=== PATIENT | female | born 1985 | race Caucasian/White ===

== ENCOUNTER 2016-04-30 14:52 | Inpatient (IN) | payer OTHER ==
[~2016-04-30] VITALS: Ht 172.7 cm; Wt 104.0 kg
[~2016-04-30 14:52] MED LIST: PV W1TAB7; [UNRECOGNIZED DRUG - CODE]
[2016-04-30 15:18] VITALS: Ht 172.7 cm; Wt 104.0 kg
[2016-04-30 15:19] VITALS: BP 127/79
[2016-04-30] MEDS ORDERED: MISOPROSTOL 200 MCG TAB PR PRN (15:30)
[2016-04-30] MEDS ORDERED: LACTATED RINGER'S 1,000 ML IV PRN (15:30)
[2016-04-30] MEDS ORDERED: METHYLERGONOVINE 0.2 MG INJ IM PRN (15:30)
[2016-04-30] MEDS ORDERED: LIDOCAINE 1% (MPF) 30 ML INJ INJ PRN (15:30)
[2016-04-30] MEDS ORDERED: CARBOPROST 250 MCG INJ IM PRN (15:30)
[2016-04-30] MEDS ORDERED: OXYTOCIN 30 UNITS/LR 500 ML IV PRN (15:30)
[2016-04-30 15:47] LABS: BASOPHILS % 0.3 % (0.0-2.0); EOSINOPHILS # 0.1 10^3/ul (0.0-0.5); EOSINOPHILS % 0.9 % (0.0-7.0); HEMATOCRIT 38.4 % (37.0-47.0); HEMOGLOBIN 12.9 g/dl (12.0-16.0); LYMPHOCYTES # 1.7 10^3/ul (0.8-2.9); MEAN CORPUSCULAR HEMOGLOBIN 27.7 pg (29.0-33.0); MEAN CORPUSCULAR HGB CONC 33.5 g/dl (32.0-37.0); MEAN CORPUSCULAR VOLUME 82.7 fl (82.0-101.0); MEAN PLATELET VOLUME 9.4 fl (7.4-10.4); MONOCYTE # 0.5 10^3/ul (0.3-0.9); MONOCYTES % 5.9 % (0.0-11.0); NEUTROPHIL # 6.2 10^3/ul (1.6-7.5); NEUTROPHILS % 72.9 % (39.0-77.0); PLATELET COUNT 247 10^3/UL (140-440); RED BLOOD COUNT 4.64 10^6/ul (4.20-5.40); RED CELL DISTRIBUTION WIDTH 17.5 % (11.5-14.5); UNCORRECTED WBC 8.6 10^3/ul (4.8-10.8); WHITE BLOOD COUNT 8.6 10^3/ul (4.8-10.8)
[2016-04-30] MEDS: BETAMET NA PHOS/AC(6 MG/ML) 5ML INJ IM SCH (15:54)
[2016-04-30 15:56] LABS: ALBUMIN 3.5 g/dl (3.3-4.9)
[2016-04-30 15:57] LABS: POTASSIUM 4.5 mmol/L (3.5-5.1)
[2016-04-30 15:58] LABS: INR 0.94; PARTIAL THROMBOPLASTIN TIME 26.8 Sec (25.0-35.0); PROTIME 12.6 Sec (12.2-14.2)
[2016-04-30 15:59] LABS: ALBUMIN/GLOBULIN RATIO 0.94; BILIRUBIN,INDIRECT 0.3 mg/dl (0-1.1); BILIRUBIN,TOTAL 0.3 mg/dl (0.2-1.3); CREATININE 0.46 mg/dl (0.44-1.00); TOTAL PROTEIN 7.2 g/dl (6.1-8.1)
[2016-04-30 16:00] LABS: CALCIUM 9.3 mg/dl (8.4-10.2); CONDITION 1; LH ANALYZER COMMENTS 1; URIC ACID 4.7 mg/dl (3.1-7.9)
[2016-04-30] MEDS: LACTATED RINGER'S 1,000 ML IV SCH (16:03)
[2016-04-30 16:04] LABS: ADD UMIC YES; URINE BILIRUBIN (Dip) NEGATIVE (NEGATIVE); URINE BLOOD (Dip) NEGATIVE (NEGATIVE); URINE COLOR LT. YELLOW (YELLOW); URINE GLUCOSE (Dip) NEGATIVE (NEGATIVE); URINE KETONES (Dip) NEGATIVE (NEGATIVE); URINE LEUKOCYTE ESTERASE (Dip) TRACE (NEGATIVE); URINE NITRITE (Dip) NEGATIVE (NEGATIVE); URINE TOTAL PROTEIN (Dip) NEGATIVE (NEGATIVE); URINE UROBILINOGEN (Dip) 0.2 E.U./dL (0.1-1.0)
[2016-04-30 16:15] LABS: SQUAMOUS EPITHELIAL CELL,UR MODERATE; URINE RBCS NONE SEEN /HPF (0)
[2016-04-30] MEDS: URSODIOL 300 MG CAP PO SCH (20:46)
[2016-05-01] MEDS: LACTATED RINGER'S 1,000 ML IV SCH ×3 (00:03→16:17)
--- NOTE | 2016-05-01 00:30 | PN ---
Date/Time of Note Date/Time of Note DATE: 05/01/16 TIME: 00:27 OB Subjective Subjective Subjective Patient admitted yesterday with twin gestation due to elevated blood pressure,, rule out PIH by primary OB. Patient denies any headache, blurred vision or epigastric pain. She denies any vaginal bleeding, uterine contractions or decreased movement. OB Objective Objective Objective General appearance: Alert and oriented not in acute distress. Abdomen: Soft, gravid, fundal height consistent with gestational age NST: Category 1 for both fetuses, no contractions seen on the monitor Extremities: No calf tenderness no click no edema Hematology - 72 Hrs Test 04/30/16 15:23 Basophils # 0.010^3/ul (0.0-0.1) Basophils % 0.3% (0.0-2.0) Blood Morphology Comment Eosinophils # 0.110^3/ul (0.0-0.5) Eosinophils % 0.9% (0.0-7.0) Hematocrit 38.4% (37.0-47.0) Hemoglobin 12.9g/dl (12.0-16.0) Lymphocytes # 1.710^3/ul (0.8-2.9) Lymphocytes % 20.0% (15.0-51.0) Mean Corpuscular Hemoglobin 27.7pg (29.0-33.0) L Mean Corpuscular Hemoglobin Concent 33.5g/dl (32.0-37.0) Mean Corpuscular Volume 82.7fl (82.0-101.0) Mean Platelet Volume 9.4fl (7.4-10.4) Monocytes # 0.510^3/ul (0.3-0.9) Monocytes % 5.9% (0.0-11.0) Neutrophils # 6.210^3/ul (1.6-7.5) Neutrophils % 72.9% (39.0-77.0) Nucleated Red Blood Cells # 0.010^3/ul (0.0-0.0) Nucleated Red Blood Cells % 0.0/100WBC (0.0-0.0) Platelet Count 30510^3/UL (140-440) Red Blood Count 4.6410^6/ul (4.20-5.40) Red Cell Distribution Width 17.5% (11.5-14.5) H White Blood Count 8.610^3/ul (4.8-10.8) Chemistry Test 04/30/16 15:23 Alanine Aminotransferase (ALT/SGPT) 36IU/L (13-69) Albumin 3.5g/dl (3.3-4.9) Albumin/Globulin Ratio 0.94 Alkaline Phosphatase 230IU/L (42-121) H Anion Gap 19 (8-16) H Aspartate Amino Transf (AST/SGOT) 37IU/L (15-46) Blood Urea Nitrogen 8mg/dl (7-20) Calcium Level 9.3mg/dl (8.4-10.2) Carbon Dioxide Level 20mmol/L (21-31) L Chloride Level 104mmol/L (97-110) Creatinine 0.46mg/dl (0.44-1.00) Direct Bilirubin 0.00mg/dl (0.00-0.20) Globulin 3.70g/dl (1.3-3.2) H Glucose Level 86mg/dl (70-220) Indirect Bilirubin 0.3mg/dl (0-1.1) Potassium Level 4.5mmol/L (3.5-5.1) Sodium Level 138mmol/L (135-144) Total Bilirubin 0.3mg/dl (0.2-1.3) Total Protein 7.2g/dl (6.1-8.1) Uric Acid 4.7mg/dl (3.1-7.9) OB Assessment/Plan Other Assessment: Hospital day #2 Admitted for rule out PIH. Currently undergoing 24 hour urine protein collection. Status post 1 dose of steroids. Blood pressures reviewed. Mostly in normal range occasional 140s over 80s. Patient currently asymptomatic. PIH labs are normal. Received 1 dose of steroids for lung maturity. We will continue expectant management with blood pressure monitoring Follow up with 24-hour urine protein Currently stable, asymptomatic SHIRA LAURA MD May 01, 2016 00:30
[2016-05-01] MEDS: URSODIOL 300 MG CAP PO SCH ×3 (09:01→21:17)
[2016-05-01 15:49] LABS: COLLECTION PERIOD 24 hrs
[2016-05-01] MEDS: BETAMET NA PHOS/AC(6 MG/ML) 5ML INJ IM SCH (16:17)
[2016-05-01] MEDS ORDERED: LORATADINE 10 MG TAB PO ONE (17:00)
--- NOTE | 2016-05-01 17:34 | HP ---
Date/Time of Note Date/Time of Note DATE: 05/01/16 TIME: 16:49 OB - History Hx of Present Free Text/Dictation 30 years old white female with twins admitted to [facility] to rule out -induced hypertension., And cholestasis of This patient has been under the care of the [facility] medical group from December 21, 2015 during the course of her till April 30 her her blood pressure was within normal till yesterday's visit to the office her blood pressure was 142/89. The only other abnormal finding was abnormal 3 hours GTT with elevated blood glucose to(210 ) on the second hour, the rest of the values of GTT were normal Past history Menarche at age 13 history of 2 previous pregnancies one normal vaginal delivery on February 09,one section on a 10 pound baby on December 2010 Allergies, denies allergy to any known medication Social habit, denies smoking or drinking, Family history Both grandparents have diabetes and hypertension Review of systems considering twins at 33 weeks within normal Physical examination 5 feet 8, 229 pound, Temperature 98 pulse 104, respirations 6, blood pressure in the hospital 123/80 Head ears nose and throat negative, Neck supple no thyromegaly Lungs clear to P/A Heart , normal sinusal rhythm Abdomen, fundal height 41 cm from symphysis pubis to the height of the fundus, category 1 heart rate of both baby Pelvic examination, deferred Extremity, no edema no varicosities Impression intrauterine twins at 33 weeks of gestation, rule out cholestasis of rule out -induced hypertension. Estimated Due Date: Jun 19, 2016 : 3 Para: 2 Spontaneous : 0 Therapeutic : 0 Care: Good Care Ultrasounds: Normal mid trimester US Obstetrical Complications: Gestational Diabetes, Pre-eclampsia, Gestational Hypertension Medical Complications: None Past Family/Social History * Past Medical, Surgical, Family and Obstetric Histories reviewed from chart. Rubella: immune RPR/VDRL: Negative GBS Status: Unknown OB Admission Exam Vital Signs Vital Signs Vital Signs Date Time Temp Pulse Resp B/P Pulse Ox O2 Delivery O2 Flow Rate FiO2 04/30/16 15:19 98.0 127/79 Room Air Physical Exam HEENT: WNL Heart: Rhythm Normal Lungs: Clear, Equal Abdomen: WNL Extremities: Normal Reflexes: Normal Cervical Dilatation: None Effacement: 0% Station: Ballotable Heart Rate: 140's Accelerations: Accelerations Present Decelerations: No Decelerations Varibility: Moderate Contractions on Admission: None Last 72 hours Lab Results CBC & BMP 04/30/16 15:23 Liver Function Test 04/30/16 15:23 Alanine Aminotransferase (ALT/SGPT) 36 Albumin 3.5 Alkaline Phosphatase 230 H Aspartate Amino Transf (AST/SGOT) 37 Direct Bilirubin 0.00 Total Protein 7.2 OB Assessment/Plan Reason for admission: IUP - Other plan: Perinatology consult PAULA TRIMBLE MD May 01, 2016 17:07
[2016-05-01 17:42] LABS: COLLECTION PERIOD 24 hrs
[2016-05-01 17:46] LABS: SCRET 0.46 mg/dl (0.44-1.00)
[2016-05-01] MEDS: GUAIFENESIN/DM 5ML CUP PO PRN (18:04)
--- NOTE | 2016-05-01 20:43 | RADRPT ---
PROCEDURE: OB ultrasound for biophysical profile CLINICAL INDICATION: labor. TECHNIQUE: Multiple sonographic images of the gravid uterus performed. The images were reviewed on a PACS workstation. COMPARISON: 04/09/2016 FINDINGS: A twin live intrauterine is identified. Fetus 1 There is a heart rate of 139 bpm. Fetus is in a cephalic presentation. Placenta is located anterior. Biophysical profile: breathing movement = 2/2 tone = 2/2 motion = 2/2 GLENROY = 2/2 Amniotic fluid MVP = 2.9 cm. Fetus 2 There is a heart rate of 144 bpm. Fetus is in a breech presentation. Placenta is located an terior. Biophysical profile: breathing movement = 2/2 tone = 2/2 motion = 2/2 GLENROY = 2/2 Amniotic fluid MVP = 4.2 cm. IMPRESSION: 1. Twin live intrauterine gestation. 2. Twin 1 Biophysical profile = 8/8. 3. Twin 2 Biophysical profile = 8/8. RPTAT: HMVK .Juan David Carrasco MD, MD Date Time Electronically viewed and signed by .Juan David Carrasco MD, MD on 05/01/2016 20:43 .K/
[2016-05-02] MEDS: LACTATED RINGER'S 1,000 ML IV SCH ×3 (00:27→14:57)
[2016-05-02] MEDS: GUAIFENESIN/DM 5ML CUP PO PRN ×3 (00:52→12:50)
[2016-05-02] MEDS: URSODIOL 300 MG CAP PO SCH ×2 (09:13→12:50)
[2016-05-05 14:36] LABS: CHENODEOXYCHOLIC ACID 9.2 umol/L (< OR = 3.1); CHOLIC ACID 8.7 umol/L (< OR = 1.8); DEOXYCHOLIC ACID 1.6 umol/L (< OR = 2.4); TOTAL BILE ACIDS 19.5 umol/L (< OR = 6.8)
== END 2016-05-02 18:10 | disposition home or self-care (01) | DRG 781 ==
LOC: L-D 14:53 → OBG 21:15
PROVIDERS: ADMIT Obstetrics & Gynecology; ATTEND Obstetrics & Gynecology
PROC: 4A1HX4Z Monitoring of Products of Conception, Cardiac Electrical Activity, External Approach (ICD-10-PCS; principal; 2016-05-01)
DX: O26.893 Other specified pregnancy related conditions, third trimester (principal); O99.810 Abnormal glucose complicating pregnancy; O30.003 Twin pregnancy, unspecified number of placenta and unspecified number of amniotic sacs, third trimester; R03.0 Elevated blood-pressure reading, without diagnosis of hypertension; Z3A.33 33 weeks gestation of pregnancy; O09.293 Supervision of pregnancy with other poor reproductive or obstetric history, third trimester
CPT/HCPCS: 76818; 80053; 81001; 81003; 82575; 82962; 83789; 84156; 84560; 85025; 85610; 85730; 86592; 86900; 86901; 87340; J0702; J7120

== ENCOUNTER 2016-06-02 13:00 | Inpatient (IN) | payer OTHER ==
[~2016-06-02] VITALS: Ht 172.7 cm; Wt 108.5 kg
[2016-06-02] VITALS (7 sets, daily range): BP systolic 119–133; BP diastolic 67–80; PULSE 63–93; RESP 17–18; Ht 172.7 cm; Wt 108.5 kg
[2016-06-02 14:25] LABS: ADD SCAN DIFF NO
[2016-06-02 14:27] LABS: BASOPHILS % 0.3 % (0.0-2.0); EOSINOPHILS # 0.1 10^3/ul (0.0-0.5); EOSINOPHILS % 0.6 % (0.0-7.0); HEMATOCRIT 39.2 % (37.0-47.0); HEMOGLOBIN 12.7 g/dl (12.0-16.0); LYMPHOCYTES # 1.5 10^3/ul (0.8-2.9); LYMPHOCYTES % 19.8 % (15.0-51.0); MEAN CORPUSCULAR HEMOGLOBIN 28.2 pg (29.0-33.0); MEAN CORPUSCULAR HGB CONC 32.4 g/dl (32.0-37.0); MEAN CORPUSCULAR VOLUME 86.9 fl (82.0-101.0); MEAN PLATELET VOLUME 11.7 fl (7.4-10.4); MONOCYTE # 0.5 10^3/ul (0.3-0.9); MONOCYTES % 5.8 % (0.0-11.0); NEUTROPHIL # 5.7 10^3/ul (1.6-7.5); NEUTROPHILS % 72.7 % (39.0-77.0); PLATELET COUNT 177 10^3/UL (140-415); RED BLOOD COUNT 4.51 10^6/ul (4.20-5.40); RED CELL DISTRIBUTION WIDTH 17.2 % (11.5-14.5); WHITE BLOOD COUNT 7.8 10^3/ul (4.8-10.8)
[2016-06-02] MEDS ORDERED: OXYTOCIN 30 UNITS/LR 500 ML IV SCH (14:30)
[2016-06-02] MEDS ORDERED: METHYLERGONOVINE 0.2 MG INJ IM PRN (14:30)
[2016-06-02] MEDS ORDERED: CARBOPROST 250 MCG INJ IM PRN (14:30)
[2016-06-02] MEDS ORDERED: OXYTOCIN 30 UNITS/LR 500 ML IV PRN (14:30)
[2016-06-02] MEDS ORDERED: CEFAZOLIN 2 GM/50 ML (PMX) 50 ML IV SCH (14:30)
[2016-06-02] MEDS ORDERED: MISOPROSTOL 200 MCG TAB PR PRN (14:30)
[2016-06-02 14:37] LABS: INR 0.88; PROTIME 11.9 Sec (12.2-14.2); PT RATIO 0.9
[2016-06-02 14:38] LABS: PARTIAL THROMBOPLASTIN TIME 23.2 Sec (25.0-35.0)
[2016-06-02] MEDS: LACTATED RINGER'S 1,000 ML IV SCH ×3 (16:04→22:26)
[2016-06-02] MEDS ORDERED: METOCLOPRAMIDE 10 MG INJ ONE (16:39)
[2016-06-02] MEDS ORDERED: CITRIC ACID/NA CITRATE 30 ML CUP ONE (16:39)
[2016-06-02] MEDS ORDERED: LACTATED RINGER'S 1,000 ML IV ONE (16:40)
[2016-06-02] MEDS ORDERED: FAMOTIDINE 20 MG INJ ONE (16:44)
[2016-06-02] MEDS ORDERED: morphine SULFATE/PF (10 MG/10 ML) INJ ONE (16:58)
[2016-06-02] MEDS ORDERED: FENTAnyl 50 MCG/ML VIAL ONE (16:58)
[2016-06-02] MEDS ORDERED: FAMOTIDINE 20 MG INJ IV ONE (17:00)
[2016-06-02] MEDS ORDERED: METOCLOPRAMIDE 10 MG INJ IV ONE (17:00)
[2016-06-02] MEDS ORDERED: CITRIC ACID/NA CITRATE 30 ML CUP PO ONE (17:00)
--- NOTE | 2016-06-02 17:04 | HP ---
Date/Time of Note Date/Time of Note DATE: 06/02/16 TIME: 16:57 OB - History Hx of Present Free Text/Dictation 30 years old with twins, EDC June 19 admitted to [facility] in active labor being prepared to undergo primary , This patient has been under the care of the [facility]IST[facility] medical group and her was not complicated with gestational diabetes -induced hypertension or any other complications Her FACILITIES ASSISTANT history menarche at age 13 history of total of 3 including the present 2 normal vaginal delivery no other hospitalization for any other medical or surgical condition Estimated Due Date: Jun 19, 2016 : 3 Para: 2 Care: Good Care Ultrasounds: Normal mid trimester US Obstetrical Complications: None Medical Complications: None Past Family/Social History * Past Medical, Surgical, Family and Obstetric Histories reviewed from chart. Rubella: immune RPR/VDRL: Negative GBS Status: Negative HBsAG: Negative OB Admission Exam Vital Signs Vital Signs Vital Signs Date Time Temp Pulse Resp B/P Pulse Ox O2 Delivery O2 Flow Rate FiO2 06/02/16 13:28 98.0 93 18 119/80 100 Physical Exam HEENT: WNL Heart: Rhythm Normal Lungs: Clear, Equal Abdomen: WNL Extremities: Normal Reflexes: Normal Cervical Dilatation: 2cm Effacement: 50% Station: -2 Membranes: Intact Heart Rate: 130's Accelerations: Accelerations Present Decelerations: No Decelerations Varibility: Moderate Contractions on Admission: 6-10 Minutes Apart Intensity: Moderate Last 72 hours Lab Results CBC & BMP 06/02/16 14:15 PAULA TRIMBLE MD Jun 02, 2016 17:04
[2016-06-02] MEDS ORDERED: PHENYLephrine (100 MCG/ML) 5ML SYG ONE (17:11)
[2016-06-02] MEDS ORDERED: NALOXONE (0.4 MG/ML) INJ IV PRN (17:30)
[2016-06-02] MEDS ORDERED: ZOLPIDEM 5 MG TAB PO PRN (17:30)
[2016-06-02] MEDS ORDERED: FENTAnyl 50 MCG/ML VIAL IV PRN ×3 (17:30)
[2016-06-02] MEDS ORDERED: DIPHENHYDRAMINE 50 MG INJ IV PRN ×2 (17:30)
[2016-06-02] MEDS ORDERED: HYDROmorphONE (0.2 MG/ML) 10ML SYG IV PRN ×3 (17:30)
[2016-06-02] MEDS ORDERED: MEPERIDINE 25 MG INJ IV PRN (17:30)
[2016-06-02] MEDS ORDERED: HYDROmorphONE 1 MG/ML SYG IV PRN ×2 (17:30)
[2016-06-02] MEDS ORDERED: PROCHLORPERAZINE 10 MG INJ IV PRN ×2 (17:30)
[2016-06-02] MEDS ORDERED: ONDANSETRON 4 MG INJ IV PRN ×2 (17:30)
[2016-06-02] MEDS ORDERED: KETOROLAC 30 MG INJ IV PRN (17:30)
[2016-06-02] MEDS ORDERED: EPHEDrine SULFATE 50 MG/5 ML SYG ONE (17:41)
[2016-06-02] MEDS ORDERED: ONDANSETRON 4 MG INJ ONE (17:54)
--- NOTE | 2016-06-02 18:35 | OPR ---
DATE OF OPERATION: 06/02/2016 PREOPERATIVE DIAGNOSES: 1. Intrauterine twin at 37 weeks and 4 days, in active labor. 2. History of previous section. POSTOPERATIVE DIAGNOSES: 1. Intrauterine twin at 37 weeks and 4 days, in active labor. 2. History of previous section. PROCEDURE: Repeat transverse low cervical section. SURGEON: Paula Mccabe MD AGRICULTURAL TECHNICAL OFFICER: Kirill Miller MD ANESTHESIA: Spinal. ANESTHESIOLOGIST: Dr. Leigh FINDINGS: Live 2 babies. Baby A, male, weighed at 3120 grams, Apgars 9 and 9. Baby B, girl, weigh ed at 2810 grams, Apgars 9 and 9. DETAILS OF THE PROCEDURE: Under satisfactory spinal anesthesia, the patient prepped and draped and placed in supine position tilted to the left. Pfannenstiel incision was made. Old scar was removed . Incision carried through the subcutaneous tissue. Bleeders brought under control with electrocau emilia. Fascia incised to the length of incision. Rectus muscle divided in midline. Peritoneum expo sed, entered through a transverse incision. Exploration of abdomen. Gravid uterus at term, normal- appearing tubes and ovaries and extremely thinned out lower segment of the uterus to the thickness o f 1 mm. Bladder flap was developed. Transverse incision was made in the lower segment of the uteru s. Amniotic sac ruptured. Clear amniotic fluid noted. Live baby boy was delivered from unengaged vertex. Nasal oropharyngeal suction was performed. His cord was clamped after stopped pulsation an d baby handed to the team for immediate attention. Second bag of water of baby B was ruptu red. Baby girl was delivered from footling breech which body delivered up to the shoulder, then jennifer ulders delivered without any difficulty, posterior shoulder first and then anterior shoulder. Head delivered with Mauriceau maneuver. Nasal oropharyngeal suction was performed. Cord clamped after s topped pulsation and baby handed to the team for immediate attention. The patient received 20 units of Pitocin. Placenta delivered manually intact, and both placentas were submitted for pat hology. Uterine cavity cleaned with wet sponge and drainage established. Uterus closed in 2 layers using Monocryl #1 in continuous fashion. Peritoneal cavity irrigated with warm saline. Sponge, ne edle, instrument reported to be correct. Abdominal peritoneum closed with 2-0 chromic catgut contin uously. Rectus muscle approximated with few interrupted 2-0 chromic catgut. Fascia closed with #1 PDS in a continuous fashion. Subcutaneous tissue approximated with 2-0 chromic catgut. Skin closed with eugenia. Estimated blood loss 700 to 800 mL. Urine bag contained 200 mL of clear urine. The patient tolerated procedure well, transferred to recovery room in good condition. Dictated By: PAULA RICE/CRISTIAN Conf#: [id number] DID#: [id number]
[2016-06-02] MEDS: KETOROLAC 30 MG INJ IV PRN (20:59)
[2016-06-03] MEDS: LACTATED RINGER'S 1,000 ML IV SCH ×2 (06:10→10:44)
[2016-06-03 08:15] VITALS: BP 110/67; PULSE 83; RESP 18
[2016-06-03] MEDS: KETOROLAC 30 MG INJ IV PRN (10:40)
[2016-06-03 12:00] VITALS: BP 104/56; PULSE 75; RESP 18
[2016-06-03 16:15] VITALS: BP 110/57; PULSE 76; RESP 18
[2016-06-03] MEDS ORDERED: KETOROLAC 30 MG INJ IV PRN (17:30)
--- NOTE | 2016-06-03 17:39 | PN ---
Date/Time of Note Date/Time of Note DATE: 06/03/16 TIME: 17:38 OB Subjective Subjective Subjective Post day 1 Afebrile vital signs stable, abdomen soft bowel sounds. Lochia moderate extremity normal ambulation recommended Current Medications Medications (Trade) Dose Ordered Sig/Migel Route PRN Reason Start Time Stop Time Status Last Admin Dose Admin Lactated Ringer's 1,000 ml @ 125 mls/hr Q8H IV 06/02/16 14:08 06/03/16 10:44 Cefazolin Sodium/ Dextrose 50 ml @ 100 mls/hr ONCE IV 06/02/16 14:30 06/02/16 19:45 DC Oxytocin/Lactated Ringer's 500 ml @ 125 mls/hr ONCE IV 06/02/16 14:30 06/02/16 19:45 DC Oxytocin/Lactated Ringer's 500 ml @ 0 mls/hr ONCE PRN IV For Hemorrhage Management 06/02/16 14:30 06/02/16 19:45 DC Methylergonovine Maleate (Methergine) 0.2 mg ONCE PRN IM VAGINAL BLEEDING 06/02/16 14:30 06/02/16 19:45 DC Carboprost Tromethamine (Hemabate) 250 mcg ONCE PRN IM VAGINAL BLEEDING 06/02/16 14:30 06/02/16 19:45 DC Misoprostol (Cytotec) 1,000 mcg ONCE PRN LA VAGINAL BLEEDING 06/02/16 14:30 06/02/16 19:45 DC Metoclopramide HCl (Reglan) 10 mg STK-MED ONCE .ROUTE 06/02/16 16:39 06/02/16 16:40 DC Citric Acid/ Sodium Citrate 30 ml 30 ml STK-MED ONCE .ROUTE 06/02/16 16:39 06/02/16 16:40 DC Lactated Ringer's (Lr) 1,000 ml @ 1,000 mls/hr Q1H ONCE IV 06/02/16 16:40 06/02/16 17:39 DC 06/02/16 22:24 Citric Acid/ Sodium Citrate (Bicitra) 30 ml pre-procedure ONCE PO 06/02/16 17:00 06/02/16 17:01 DC 06/02/16 16:46 Famotidine (Pepcid Iv) 20 mg pre-procedure ONCE IV 06/02/16 17:00 06/02/16 17:01 DC 06/02/16 16:46 Metoclopramide HCl (Reglan) 10 mg ONCE ONCE IV 06/02/16 17:00 06/02/16 17:01 DC 06/02/16 16:46 Famotidine (Pepcid Iv) 20 mg STK-MED ONCE .ROUTE 06/02/16 16:44 06/02/16 16:45 DC Fentanyl (Sublimaze) 100 mcg STK-MED ONCE .ROUTE 06/02/16 16:58 06/02/16 16:59 DC Morphine Sulfate (Duramorph) 10 mg STK-MED ONCE .ROUTE 06/02/16 16:58 06/02/16 16:59 DC Phenylephrine HCl (Juvencio-Synephrine Inj Syg) 500 mcg STK-MED ONCE .ROUTE 06/02/16 17:11 06/02/16 17:12 DC Hydromorphone HCl (Dilaudid (Rec)) 0.2 mg PACU ORDER PRN IV MILD PAIN LEVEL 1-3 06/02/16 17:30 06/02/16 19:45 DC Hydromorphone HCl (Dilaudid (Rec)) 0.4 mg PACU ORDER PRN IV MODERATE PAIN LEVEL 4-6 06/02/16 17:30 06/02/16 19:45 DC Hydromorphone HCl (Dilaudid (Rec)) 0.6 mg PACU ORDER PRN IV SEVERE PAIN LEVEL 7-10 06/02/16 17:30 06/02/16 19:45 DC Fentanyl (Sublimaze) 25 mcg PACU ORDER PRN IV MILD PAIN LEVEL 1-3 06/02/16 17:30 06/02/16 19:45 DC Fentanyl (Sublimaze) 50 mcg PACU ODER PRN IV MODERATE PAIN LEVEL 4-6 06/02/16 17:30 06/02/16 19:45 DC Fentanyl (Sublimaze) 75 mcg PACU ORDER PRN IV SEVERE PAIN LEVEL 7-10 06/02/16 17:30 06/02/16 19:45 DC Ketorolac Tromethamine (Toradol) 30 mg PACU ORDER PRN IV PAIN 06/02/16 17:30 06/02/16 19:45 DC Ondansetron HCl (Zofran Inj) 4 mg PACU ORDER PRN IV NAUSEA AND/OR VOMITING 06/02/16 17:30 06/02/16 19:45 DC Prochlorperazine (Compazine Inj) 5 mg PACU ORDER PRN IV NAUSEA AND/OR VOMITING 06/02/16 17:30 06/02/16 23:00 DC Meperidine HCl (Demerol) 25 mg PACU ORDER PRN IV POST-OP RIGORS 06/02/16 17:30 06/02/16 19:45 DC Diphenhydramine HCl (Benadryl) 25 mg PACU ORDER PRN IV PRURITUS 06/02/16 17:30 06/02/16 19:45 DC Naloxone HCl (Narcan) 0.1 mg Q2M PRN IV FOR RESP RATE 8 OR LESS 06/02/16 17:30 06/03/16 17:10 DC Ketorolac Tromethamine (Toradol) 30 mg Q6H PRN IV PAIN 06/02/16 17:30 06/03/16 17:10 DC 06/03/16 10:40 Hydromorphone HCl (Dilaudid) 0.2 mg Q3H PRN IV PAIN LEVEL 1-5 06/02/16 17:30 06/03/16 17:10 DC Hydromorphone HCl (Dilaudid) 0.4 mg Q3H PRN IV PAIN LEVEL 6-10 06/02/16 17:30 06/03/16 17:10 DC Diphenhydramine HCl (Benadryl) 25 mg Q6H PRN IV ITCHING 06/02/16 17:30 06/03/16 17:10 DC 06/03/16 01:35 Ondansetron HCl (Zofran Inj) 4 mg Q6H PRN IV NAUSEA AND/OR VOMITING 06/02/16 17:30 06/03/16 17:10 DC Prochlorperazine (Compazine Inj) 10 mg ONCE PRN IV NAUSEA AND/OR VOMITING 06/02/16 17:30 06/03/16 17:10 DC Zolpidem Tartrate (Ambien) 5 mg HS MAY REPEAT X 1 PRN PO INSOMNIA 06/02/16 17:30 06/03/16 17:10 DC Miscellaneous Information (* Miscellaneous Pharmacy Order) Duramorph: 0.2 mg Spi... GIVEN XX 06/02/16 17:30 06/02/16 17:30 DC Ephedrine Sulfate 50 mg STK-MED ONCE .ROUTE 06/02/16 17:41 06/02/16 17:42 DC Ondansetron HCl (Zofran Inj) 4 mg STK-MED ONCE .ROUTE 06/02/16 17:54 06/02/16 17:55 DC Influenza Virus Vaccine (Fluzone) 0.5 ml ONCE ONCE IM* 06/04/16 09:00 06/04/16 09:01 Ketorolac Tromethamine (Toradol) 30 mg Q6H PRN IV PAIN 06/03/16 17:30 06/03/16 18:00 06/03/16 17:19 PAULA TRIMBLE MD Jun 03, 2016 17:39
[2016-06-03 20:00] VITALS: BP 116/72; PULSE 80; RESP 18
[2016-06-03] MEDS ORDERED: OXYTOCIN 30 UNITS/LR 500 ML IV SCH (20:13)
[2016-06-03] MEDS ORDERED: LANOLIN 7 GM TUBE TOP PRN (20:30)
[2016-06-03] MEDS ORDERED: MISOPROSTOL 200 MCG TAB PR PRN (20:30)
[2016-06-03] MEDS ORDERED: METHYLERGONOVINE 0.2 MG INJ IM PRN (20:30)
[2016-06-03] MEDS ORDERED: OXYCODONE/ACETAMINOPHEN (5/325) TAB PO PRN ×2 (20:30)
[2016-06-03] MEDS ORDERED: OXYTOCIN 30 UNITS/LR 500 ML IV PRN (20:30)
[2016-06-03] MEDS ORDERED: CEFAZOLIN 1 GM/50 ML (PMX) 50 ML IVPB SCH (20:30)
[2016-06-03] MEDS ORDERED: ACETAMINOPHEN/CODEINE #3 TAB PO PRN (20:30)
[2016-06-03] MEDS ORDERED: CARBOPROST 250 MCG INJ IM PRN (20:30)
[2016-06-03] MEDS: ACETAMINOPHEN/CODEINE #3 TAB PO PRN (21:01)
[2016-06-03] MEDS: SENNA/DOCUSATE NA (8.6MG/50MG) TAB PO SCH (21:01)
[2016-06-04] MEDS: IBUPROFEN 600 MG TAB PO SCH ×5 (00:22→23:40)
[2016-06-04 04:00] VITALS: BP 114/62; PULSE 74; RESP 20
[2016-06-04] MEDS: ACETAMINOPHEN/CODEINE #3 TAB PO PRN ×3 (04:01→19:47)
[2016-06-04 07:45] VITALS: BP 108/63; PULSE 70; RESP 18
[2016-06-04 08:00] LABS: ADD SCAN DIFF NO
[2016-06-04 08:17] LABS: BASOPHILS % 0.2 % (0.0-2.0); EOSINOPHILS # 0.2 10^3/ul (0.0-0.5); EOSINOPHILS % 1.6 % (0.0-7.0); HEMATOCRIT 28.5 % (37.0-47.0); LYMPHOCYTES % 21.7 % (15.0-51.0); MEAN CORPUSCULAR HEMOGLOBIN 28.3 pg (29.0-33.0); MEAN CORPUSCULAR HGB CONC 31.6 g/dl (32.0-37.0); MEAN CORPUSCULAR VOLUME 89.6 fl (82.0-101.0); MEAN PLATELET VOLUME 11.9 fl (7.4-10.4); MONOCYTE # 0.7 10^3/ul (0.3-0.9); MONOCYTES % 7.3 % (0.0-11.0); NEUTROPHIL # 6.4 10^3/ul (1.6-7.5); NEUTROPHILS % 68.7 % (39.0-77.0); PLATELET COUNT 158 10^3/UL (140-415); RED BLOOD COUNT 3.18 10^6/ul (4.20-5.40); RED CELL DISTRIBUTION WIDTH 17.2 % (11.5-14.5); WHITE BLOOD COUNT 9.4 10^3/ul (4.8-10.8)
[2016-06-04] MEDS ORDERED: INFLUENZA VIRUS VACCINE 0.5 ML (DISPENSING) IM* ONE (09:00)
[2016-06-04] MEDS: SENNA/DOCUSATE NA (8.6MG/50MG) TAB PO SCH ×2 (09:07→21:14)
[2016-06-04 16:00] VITALS: BP 117/71; PULSE 71; RESP 19
[2016-06-04 20:00] VITALS: BP 118/61; PULSE 86; RESP 18
[2016-06-04] MEDS ORDERED: NA PHOSPHATE/BIPHOS 133 ML ENEMA PR ONE (21:00)
--- NOTE | 2016-06-04 21:32 | NSTRPT ---
NST Information Datetime Report Generated by CPN: 06/04/2016 21:32 Datetime: 06/02/2016 10:40 NST Information EGA: 37.4 Test Number: 8 Time on Monitor: 06/02/2016 11:13 Time off Monitor: 06/02/2016 11:35 NST Duration (Min): 22 Reason for NST: Cholestasis; Diabetes Mellitus; Gestational Hypertension; Multiple Gestation; Othe r Reason for NST Other: A1DM, Twins Test and Monitor Explained: Monitor Explained; Test Explained; Verbalized Understanding Pulse: 84 Resp: 18 SBP: 112 DBP: 72 Test Evaluation NST Interventions: PO Hydration Patient States Movement: Present Contraction Frequency: Q 7 MIN, PT STATES MILD FHR Baseline : 140 Variability: Moderate 6-25bpm Accelerations: 15X15 Decelerations: None FHR Category: Category I NST Results: Reactive Comments: To u/s BABY A-MVP-3.7 CM, CEPH. BABY B-MVP=-3.7 CM, BREECH. 1202-Report called to Dr cMcabe, order received to send to his office. Pt to Dr Mccabe's office w ith labor precautions, kick count instructions reviewed and follow up NST appt given. States u nderstanding and denies further questions at this time. NST Baby B Patient States Movement: Present FHR Baseline: 140 Variability: Moderate 6-25bpm Accelerations: 15X15 Decelerations: None FHR Category: Category I Electronically Signed By E-Signature: with User ID: [id number] Datetime: 05/29/2016 10:30 NST Information EGA: 37.0 NST Duration (Min): 26 Datetime: 05/26/2016 10:39 NST Information EGA: 36.4 NST Duration (Min): 40 Datetime: 05/22/2016 10:15 NST Information EGA: 36.0 NST Duration (Min): 44 Datetime: 05/19/2016 10:12 NST Information EGA: 35.4 NST Duration (Min): 31 Datetime: 05/15/2016 10:10 NST Information EGA: 35.0 NST Duration (Min): 27 Datetime: 05/12/2016 10:15 NST Information EGA: 34.4 NST Duration (Min): 22 Datetime: 05/08/2016 09:50 NST Information EGA: 34.0 NST Duration (Min): 44
[2016-06-05] MEDS ORDERED: IBUPROFEN 600 MG TAB PO SCH
[2016-06-05 04:00] VITALS: BP 121/67; PULSE 67; RESP 20
[2016-06-05] MEDS: IBUPROFEN 600 MG TAB PO SCH ×2 (05:36→11:41)
[2016-06-05 07:45] VITALS: BP 120/79; PULSE 78; RESP 18
[2016-06-05] MEDS: SENNA/DOCUSATE NA (8.6MG/50MG) TAB PO SCH (10:56)
--- NOTE | 2016-06-05 12:10 | PD.PPDC ---
PATIENT INTAKE COORDINATOR Discharge Instruction Condition Patient Condition: Good Activity/Restrictions Activity: Normal Activity May Shower Wound/Drain Care Instructions Wound/Drain Care Instructions: Remove Steri Strips in 1 week Follow-up Follow-up with Physician: 4, Day/Days Provider Information: Appointment clinic in 4 days to discontinue eugenia Return to clinic for CREDIT CONTROL MANAGER Instructions: Fever greater than 101 Worsening abdominal pain More than 2 pads per hour Unable to tolerate diet OB Instructions: Breast Tenderness Blurried Vision Headache Surgical Instructions: Incisional Drainage Incisional Redness PAULA TRIMBLE MD Jun 05, 2016 12:10
--- NOTE | 2016-06-05 12:20 | DS ---
Date/Time of Note Date/Time of Note DATE: 06/05/16 TIME: 12:15 Obstetrical Discharge Record Final Diagnosis Final Diagnosis: delivered Section Section: Repeat Condition on Discharge Physical Assessment Last Vitals: Post day 3 Vitals stable abdomen soft uterus incision dry patient had normal bowel movement is discharge post 3 days of , this is a 30 years old female with twin history of previous C sections admitted to [facility] at 37-1/2 weeks gestation in active labor underwent a repeat the outcome of the surgery was to live baby's male and female , postoperative course in the hospital uneventful did not spike temperature had no problem with bowel function and urinary on the third postoperative incision inspected found free of inflammation and infection she was discharged home with a prescription of analgesics and multivitamin and she would be seen in the office in 4 day to discontinue eugenia Voiding: Yes Bowel Movement: Yes Breast: Soft, non-tender, Filling Fundus: Firm Calf Tenderness: No Patient Condition: Good PAULA TRIMBLE MD Jun 05, 2016 12:20
[2016-06-06] MEDS ORDERED: DIPHTH/TET/ACEL PERTUSS (ADULT) 0.5 ML VIAL IM* ONE (09:00)
== END 2016-06-05 17:04 | disposition home or self-care (01) | DRG 766 ==
LOC: OBT 13:00 → L-D 13:02 → OBT 13:56 → L-D 13:58 → PP1 21:47
PROVIDERS: ADMIT Obstetrics & Gynecology; ATTEND Obstetrics & Gynecology
PROC: 10D00Z1 Extraction of Products of Conception, Low, Open Approach (ICD-10-PCS; principal; 2016-06-02 17:00)
DX: O34.211 Maternal care for low transverse scar from previous cesarean delivery (principal); Z37.0 Single live birth; Z3A.37 37 weeks gestation of pregnancy
CPT/HCPCS: 85025; 85610; 85730; 86592; 86850; 86900; 86901; 87340; 88307; 90686; 99464; G0463; J0690; J1200; J1885; J2274; J2370; J2405; J2590; J2765; J3010; J7120